=== PATIENT | female | born 1965 | race Caucasian/White ===

== ENCOUNTER 2017-07-02 13:39 | Inpatient (IN) | payer BC ==
--- NOTE | 2017-07-02 14:50 | C.PDOC ---
History Of Present Illness <James Mcnair - Last Filed: 07/02/17 15:59> <Becca Jon - Last Filed: 07/02/17 16:21> Patient is a 51 year old female with a past medical history of DM and HLD, who presents to the ED with complaints of chest pain radiating to the left arm. Patient states the chest pain started last Sunday while working at home, occurred intermittently throughout the day and subsided that afternoon. She took a Tylenol and sleeping medication, and went to bed early. She went to see her PMD, Dr. Diane, on Sunday, as well as spoke with Dr. Ramírez, who scheduled her for a nuclear stress test on 07/18/17. Patient states she developed chest pain again this morning that radiates to her left arm, which is why she came to the ED. She describes the pain as a tightness in her left chest that is also reproducible. She denies palpitations, shortness of breath, nausea , vomiting, fevers, dizziness, changes in vision, and dysuria. PMD: Dr. 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 Allergies: PCN (since childhood-unknown reaction) Medications: Rosuvastatin 10mg PO daily, Metformin 1000mg PO BID (Becca Jon) <James Mcnair - Last Filed: 07/02/17 15:59> History Per: Patient History/Exam Limitations: no limitations Onset/Duration Of Symptoms: Intermittent Episodes Current Symptoms Are (Timing): Still Present Severity: Moderate Quality: Tightness Associated Symptoms: Other (left arm pain) Exacerbating Factors: Other (reproducible chest pain with palpation) Alleviating Factors: Other (minimal relief with tyelnol) Additional History Per: Patient <Becca Jon - Last Filed: 07/02/17 16:21> Time Seen by Provider: 07/02/17 14:01 Chief Complaint (Nursing): Chest Pain Past Medical History - Medical History PMH: Diabetes Other Surgeries: THR 2006 Family History: States: [place] (Father) Other Family History: Mother- Bladder cancer - Social History Hx Tobacco Use: No Hx Alcohol Use: Yes (social) Hx Substance Use: No - Immunization History Hx Tetanus Toxoid Vaccination: No Hx Influenza Vaccination: No Hx Pneumococcal Vaccination: No <Becca Jon - Last Filed: 07/02/17 16:21> Vital Signs: Last Vital Signs Temp 97.4 F L 07/02/17 13:51 Pulse 76 07/02/17 15:58 Resp 16 07/02/17 15:58 BP 135/76 07/02/17 15:58 Pulse Ox 99 07/02/17 16:14 Review Of Systems Constitutional: Negative for: Fever, Chills, Sweats, Weakness Eyes: Negative for: Vision Change Cardiovascular: Positive for: Chest Pain. Negative for: Palpitations, Edema, Light Headedness Respiratory: Negative for: Cough, Shortness of Breath, Pleuritic Pain Gastrointestinal: Negative for: Nausea, Vomiting, Abdominal Pain, Diarrhea, Constipation Genitourinary: Negative for: Dysuria, Frequency, Hematuria Musculoskeletal: Positive for: Arm Pain (chest pain radiates to left arm). Negative for: Back Pain Neurological: Positive for: Headache (mild). Negative for: Weakness, Dizziness <Becca Jon - Last Filed: 07/02/17 16:21> Physical Exam - Physical Exam Appears: Well, Non-toxic, No Acute Distress Skin: Normal Color, Warm, Dry Head: Atraumatic, Normacephalic Eye(s): bilateral: Normal Inspection Chest: Symmetrical, Tenderness (with palpation of the left chest) Cardiovascular: Rhythm Regular, No Edema, No Murmur, No JVD Respiratory: Normal Breath Sounds, No Rales, No Rhonchi, No Stridor Gastrointestinal/Abdominal: Normal Exam, Bowel Sounds, Soft, No Tenderness, No Distention Extremity: Normal ROM, No Tenderness, No Pedal Edema, No Swelling Extremity: Bilateral: Atraumatic, No Pedal Edema Pulses: Left Dorsalis Pedis: Normal, Right Dorsalis Pedis: Normal Neurological/Psych: Oriented x3, Normal Speech <Becca Jon - Last Filed: 07/02/17 16:21> ED Course And Treatment - Laboratory Results Result Diagrams: 07/02/17 15:05 07/02/17 15:05 Lab Interpretation: Normal (trop neg.) ECG: Interpreted By Me ECG Rhythm: Sinus Rhythm, ST/T Changes (+ T^ inversions V1-V6) ECG Interpretation: Normal, Abnormal Rate From EC - Radiology CXR: Interpreted by Me CXR Interpretation: Yes: No Acute Disease Reevaluation Time: 16:00 Reassessment Condition: Improved - Physician Consult Information Outcome Of Conversation: 1600: d/w Dr. Alia rosales to admit. Dr. Styles to consult <James Mcnair - Last Filed: 07/02/17 15:59> - Laboratory Results Result Diagrams: 07/02/17 15:05 07/02/17 15:05 O2 Sat by Pulse Oximetry: 99 <Becca Jon - Last Filed: 07/02/17 16:21> Medical Decision Making <James Mcnair - Last Filed: 07/02/17 15:59> <Becca Jon - Last Filed: 07/02/17 16:21> Medical Decision Making: Dr. Diane contacted at 2:58pm; patient to be admitted under his service. Dr. Ramírez contacted. Ordered: - Labs: CBC, Coags, CMP, Troponins, EKG, BNP - Chest xray - Nitro paste - ASA 325mg PO - Lovenox 70mg SC (Becca Jon) Disposition Doctor Will See Patient In The: Hospital Counseled Patient/Family Regarding: Studies Performed, Diagnosis - Disposition Disposition Time: 16:01 <James Mcnair - Last Filed: 07/02/17 15:59> <Becca Jon - Last Filed: 07/02/17 16:21> - Disposition Disposition: HOSPITALIZED Condition: GOOD - Clinical Impression Clinical Impression: Precordial pain
[2017-07-02] MEDS ORDERED: Nitroglycerin 2% Ointment Foilpak UD TOP STA (14:53)
[2017-07-02] MEDS ORDERED: Aspirin 325 mg EC Tablets PO STA (14:53)
[2017-07-02] MEDS ORDERED: Enoxaparin 40 mg Syringe SC STA (14:56)
[2017-07-02 15:11] LABS: BASO % 0.5 % (0.0-2.0); EOS # 0.2 K/uL (0.0-0.7); EOS % 2.9 % (0.0-4.0); HEMOGLOBIN 13.3 g/dL (11.0-16.0); LYMPH # 2.1 K/uL (1.0-4.3); LYMPH % 37.1 % (20.0-40.0); MEAN CELL VOLUME 77.9 fL (81.0-99.0); MEAN CORPUSCULAR HEMOGLOBIN 26.6 pg (27.0-31.0); MEAN CORPUSCULAR HGB CONC 34.1 g/dL (33.0-37.0); MONO # 0.3 K/uL (0.0-0.8); MONO % 5.6 % (0.0-10.0); NEUT % 53.9 % (50.0-75.0); NRBC % 0.1 % (0.0-2.0); RBC 5.01 Mil/uL (3.80-5.20); RED CELL DISTRIBUTION WIDTH 13.4 % (11.5-14.5); WHITE BLOOD COUNT 5.6 K/uL (4.8-10.8)
[2017-07-02 15:19] LABS: INR 0.9; PROTHROMBIN TIME 10.3 SECONDS (9.7-12.2)
[2017-07-02] MEDS ORDERED: Aspirin 325 mg EC Tablets PO ONE (15:33)
[2017-07-02 15:34] LABS: ALB/GLOB RATIO 1.2 (1.0-2.1); ALBUMIN 4.5 g/dL (3.5-5.0); ALT/SGPT 22 U/L (9-52); AST/SGOT 33 U/L (14-36); BLOOD UREA NITROGEN 9 mg/dL (7-17); CALCIUM 9.5 mg/dl (8.6-10.4); GFR AFRICAN-AMERICAN > 60; GFR NON-AFRICAN AMERICAN > 60
[2017-07-02] MEDS ORDERED: Enoxaparin 80 mg Syringe ONE (15:34)
[2017-07-02] MEDS ORDERED: Nitroglycerin 2% Ointment Foilpak UD TOP ONE (15:34)
[2017-07-02 15:46] LABS: B-TYPE NATRIURETIC PEPTIDE 106 pg/mL (0-900)
--- NOTE | 2017-07-02 16:16 | RAD ---
HISTORY: SOB COMPARISON: Chest x-ray performed 11/03/15 TECHNIQUE: Chest, one view. FINDINGS: Examination limited by habitus. LUNGS: Right greater than left biapical pleural thickening with associated nodularity, scarring, and consolidation which suggest prior granulomatous disease. Bilateral hilar retracted superiorly. Suggest further evaluation with chest CT if indicated. Please note that chest x-ray has limited sensitivity for the detection of pulmonary masses. PLEURA: No significant pleural effusion identified. No definite pneumothorax . CARDIOVASCULAR: Heart size appears top normal. OSSEOUS STRUCTURES: Right 8th rib lucency laterally of unclear significance. VISUALIZED UPPER ABDOMEN: Unremarkable. OTHER FINDINGS: None. IMPRESSION: Re-identified prominent biapical pleural thickening, associated nodularity, scarring, consolidation, and retraction of bilateral winnie superiorly ; appearance suggests prior granulomatous disease. This may be further assessed with chest CT if indicated. Lucency noted involving the right lateral 8th rib of unclear significance. Considerations include lytic lesion or artifact. Recommend rib series for further evaluation. Findings discussed with Dr. Reid on 07/02/17 at 4:12 p.m..
--- NOTE | 2017-07-02 17:13 | CP.PCM.HP ---
History of Present Illness - History of Present Illness History of Present Illness: Chief complaint: Chest pain HPI: 51-year-old female with a history of diabetes, osteoarthritis, hip fracture, status post hip surgery came to the emergency room with a sudden onset of chest pain started this morning. Patient is having retrosternal chest pain, radiating to the left shoulder region on and off, for almost 2 weeks. Patient came to my office last week, and is seen by refractory bricklayer, supposed to be having a nuclear stress test. But the patient came to the emergency room today with worsening chest pain. The pain is not associated with any systemic symptoms including sweating, dizziness. Patient denies any nausea vomiting. Past medical history: Diabetes, hypercholesterolemia, osteoarthritis. Allergies: Penicillin Personal history: Nonsmoker nonalcoholic. No drug abuse Family history: Mother with heart disease. Father unknown history. Family history noncontributory otherwise Surgical history: Left hip surgery. Review of systems: Currently having no headache, visual symptom. No eye problems. Complaint of chest pain. No shortness of breath. Pain in the left hip is noted Vital signs reviewed No neck vein distention noted Chest good air entry bilaterally, no wheezing or rales noted CVS regular heart sound, no murmur noted Abdomen soft, nontender. 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 Underlying cardiac disease cannot be ruled out. EKG showing ischemic changes. We'll closely monitor, telemetry monitoring, cardiology evaluation, possible stress test if needed. Patient may need angiogram will follow the patient Present on Admission - Present on Admission Any Indicators Present on Admission: No History of DVT/PE: No History of Uncontrolled Diabetes: No Urinary Catheter: No Decubitus Ulcer Present: No Past Patient History - Past Social History Smoking Status: Never Smoked - ENDOCRINE/METABOLIC Hx Diabetes Mellitus Type 2: Yes - PSYCHIATRIC Hx Substance Use: No - SURGICAL HISTORY Hx Hysterectomy: Yes (left hip 2006) Meds Allergies/Adverse Reactions: Allergies Allergy/AdvReac Type Severity Reaction Status Date / Time Penicillins Allergy Verified 07/02/17 13:55 Results - Vital Signs Recent Vital Signs: Last Vital Signs Temp 97.4 F L 07/02/17 13:51 Pulse 76 07/02/17 15:58 Resp 16 07/02/17 15:58 BP 135/76 07/02/17 15:58 Pulse Ox 99 07/02/17 16:21 - Labs Result Diagrams: 07/02/17 15:05 07/02/17 15:05 Labs: Laboratory Results - last 24 hr 07/02/17 07/02/17 07/02/17 15:05 15:05 15:05 WBC 5.6 RBC 5.01 Hgb 13.3 Hct 39.0 MCV 77.9 L MCH 26.6 L MCHC 34.1 RDW 13.4 Plt Count 288 MPV 9.0 Neut % (Auto) 53.9 Lymph % (Auto) 37.1 [place] % (Auto) 5.6 Eos % (Auto) 2.9 Baso % (Auto) 0.5 Neut # (Auto) 3.0 Lymph # (Auto) 2.1 [place] # (Auto) 0.3 Eos # (Auto) 0.2 Baso # (Auto) 0.0 PT 10.3 INR 0.9 APTT 37 H Sodium 142 Potassium 4.2 Chloride 104 Carbon Dioxide 22 Anion Gap 21 H BUN 9 Creatinine 0.5 L Est GFR ( Amer) > 60 Est GFR (Non-Af Amer) > 60 Random Glucose 125 H Calcium 9.5 Total Bilirubin 0.5 AST 33 ALT 22 Alkaline Phosphatase 74 Troponin I < 0.0120 NT-Pro-B Natriuret Pep 106 Total Protein 8.3 Albumin 4.5 Globulin 3.8 Albumin/Globulin Ratio 1.2
[2017-07-02 20:39] LABS: CK-MB 0.29 ng/mL (0.0-3.38)
[2017-07-02] MEDS: Enoxaparin 30 mg Syringe SC SCH (21:21)
[2017-07-02] MEDS: (Novolin R) Insulin Human Regular 100 units/ml vial SC SCH (21:26)
--- NOTE | 2017-07-02 22:27 | CARD ---
APPROVED REPORT EKG Measurement Heart [id number] <Conclusion> Sinus rhythm with premature atrial complexes T wave abnormality, consider anterolateral ischemia Abnormal ECG
--- NOTE | 2017-07-02 23:02 | CP.PCM.CON ---
History of Present Illness - History of Present Illness History of Present Illness: 51 F admitted for left sided chest pain Patient scheduled for stress test in am Past Patient History - Past Medical History & Family History Past Medical History?: Yes - Past Social History Smoking Status: Never Smoked - CARDIAC Hx Cardiac Disorders: Yes Hx Angina: Yes Hx Hypercholesterolemia: Yes - PULMONARY Hx Respiratory Disorders: No - NEUROLOGICAL Hx Neurological Disorder: No - HEENT Hx HEENT Problems: No - RENAL Hx Chronic Kidney Disease: No - ENDOCRINE/METABOLIC Hx Diabetes Mellitus Type 2: Yes - HEMATOLOGICAL/ONCOLOGICAL Hx Blood Disorders: No - INTEGUMENTARY Hx Dermatological Problems: No - MUSCULOSKELETAL/RHEUMATOLOGICAL Hx Falls: No Hx Osteoarthritis: Yes - GASTROINTESTINAL Hx Gastrointestinal Disorders: No - GENITOURINARY/GYNECOLOGICAL Hx Genitourinary Disorders: No - PSYCHIATRIC Hx Psychophysiologic Disorder: No Hx Substance Use: No - SURGICAL HISTORY Hx Hysterectomy: Yes (left hip 2006) - ANESTHESIA Hx Anesthesia: Yes Hx Anesthesia Reactions: No Hx Malignant Hyperthermia: No Has any member of the family had a problem w/ anesthesia?: No Meds Allergies/Adverse Reactions: Allergies Allergy/AdvReac Type Severity Reaction Status Date / Time Penicillins Allergy Verified 07/02/17 13:55 - Medications Medications: Current Medications Aspirin (Aspirin) 325 mg PO DAILY IKE Enoxaparin Sodium (Lovenox) 30 mg SC Q12 I[facility] Last Admin: 07/02/17 21:21 Dose: 30 mg Insulin Human Regular (Novolin R) 0 unit SC ACHS IKE PRN Reason: Protocol Last Admin: 07/02/17 21:26 Dose: Not Given Rosuvastatin Calcium (Crestor) 5 mg PO HS IKE Last Admin: 07/02/17 21:20 Dose: 5 mg Zolpidem Tartrate (Ambien) 5 mg PO HS PRN PRN Reason: Insomnia Last Admin: 07/02/17 21:20 Dose: 5 mg Results - Vital Signs Recent Vital Signs: Last Vital Signs Temp 97.4 F L 07/02/17 13:51 Pulse 79 07/02/17 18:30 Resp 18 07/02/17 18:05 BP 135/76 07/02/17 15:58 Pulse Ox 100 07/02/17 18:05 - Labs Result Diagrams: 07/02/17 15:05 07/02/17 15:05 Labs: Laboratory Results - last 24 hr 07/02/17 07/02/1718 15:05 15:05 15:05 WBC 5.6 RBC 5.01 Hgb 13.3 Hct 39.0 MCV 77.9 L MCH 26.6 L MCHC 34.1 RDW 13.4 Plt Count 288 MPV 9.0 Neut % (Auto) 53.9 Lymph % (Auto) 37.1 [place] % (Auto) 5.6 Eos % (Auto) 2.9 Baso % (Auto) 0.5 Neut # (Auto) 3.0 Lymph # (Auto) 2.1 [place] # (Auto) 0.3 Eos # (Auto) 0.2 Baso # (Auto) 0.0 PT 10.3 INR 0.9 APTT 37 H Sodium 142 Potassium 4.2 Chloride 104 Carbon Dioxide 22 Anion Gap 21 H BUN 9 Creatinine 0.5 L Est GFR ( Amer) > 60 Est GFR (Non-Af Amer) > 60 POC Glucose (mg/dL) Random Glucose 125 H Calcium 9.5 Total Bilirubin 0.5 AST 33 ALT 22 Alkaline Phosphatase 74 Total Creatine Kinase CK-MB (Mass) Troponin I < 0.0120 NT-Pro-B Natriuret Pep 106 Total Protein 8.3 Albumin 4.5 Globulin 3.8 Albumin/Globulin Ratio 1.2 07/02/17 07/02/17 20:08 21:11 WBC RBC Hgb Hct MCV MCH MCHC RDW Plt Count MPV Neut % (Auto) Lymph % (Auto) [place] % (Auto) Eos % (Auto) Baso % (Auto) Neut # (Auto) Lymph # (Auto) [place] # (Auto) Eos # (Auto) Baso # (Auto) PT INR APTT Sodium Potassium Chloride Carbon Dioxide Anion Gap BUN Creatinine Est GFR ( Amer) Est GFR (Non-Af Amer) POC Glucose (mg/dL) 109 Random Glucose Calcium Total Bilirubin AST ALT Alkaline Phosphatase Total Creatine Kinase 36 CK-MB (Mass) 0.29 Troponin I < 0.0120 NT-Pro-B Natriuret Pep Total Protein Albumin Globulin Albumin/Globulin Ratio
[2017-07-03 07:37] LABS: HDL CHOLESTEROL 43 mg/dL (30-70)
[2017-07-03] MEDS ORDERED: Aminophylline 25 mg/ml Inj ONE (07:52)
[2017-07-03 07:54] LABS: LDL CHOLESTEROL 55 mg/dL (0-129)
[2017-07-03] MEDS: (Novolin R) Insulin Human Regular 100 units/ml vial SC SCH ×4 (08:22→21:00)
[2017-07-03] MEDS: Enoxaparin 30 mg Syringe SC SCH ×2 (12:02→21:00)
--- NOTE | 2017-07-03 14:52 | CT ---
PROCEDURE: CT Chest without contrast HISTORY: rib fracture COMPARISON: Plain radiographs from 07/02/2017 TECHNIQUE: Contiguous axial images were obtained through the chest without intravenous contrast enhancement. Sagittal and coronal reconstructions were performed. Radiation dose (DLP): 332.30 mGy-cm. This CT exam was performed using one or more of the following dose reduction techniques: Automated exposure control, adjustment of the mA and/or kV according to patient size, and/or use of iterative reconstruction technique. FINDINGS: LUNGS: There are extensive fibrotic changes in both upper lobes, worse on the right and cavitary changes in the posterior right upper lobe. There is also biapical pleural thickening. There is superior retraction of both winnie. There is scattered centrilobular emphysema in the lungs. MEDIASTINUM: The heart is normal in size. No pericardial effusion. No pathologic mediastinal adenopathy. PLEURA: No pleural fluid. No pneumothorax. BONES: There is an acute mildly displaced fracture in the right posterolateral 8th rib and there is an old fracture deformity in the right posterolateral 9th rib. UPPER ABDOMEN: Grossly unremarkable. OTHER FINDINGS: None. IMPRESSION: 1. Acute mildly displaced fracture in the right posterolateral 8th rib. 2. Old fracture deformity in the right posterolateral 9th rib. 3. Fibrotic changes in the upper lobes, worse on the right with retraction of winnie and scattered centrilobular emphysema in the lungs.
[2017-07-03 16:31] VITALS: RESP 20
--- NOTE | 2017-07-03 18:28 | CARD ---
APPROVED REPORT EXAM: Two-dimensional and M-mode echocardiogram with Doppler and color Doppler. Other Information Quality : GoodRhythm : INDICATION ANGINA RISK FACTORS Hyperlipidemia Diabetes M-Mode DIMENSIONS RVDd1.82 (2.1-3.2cm)Left Atrium (MM)3.23 (2.5-4.0cm) IVSd1.00 (0.7-1.1cm)Aortic Root2.55 (2.2-3.7cm) LVDd3.92 (4.0-5.6cm)Aortic Cusp Exc.1.73 (1.5-2.0cm) PWd0.82 (0.7-1.1cm)FS (%) 43 % LVDs2.25 (2.0-3.8cm)LVEF (%)74 (>50%) Mitral Valve MV E Jvoqvflu67.6cm/sMV A Eslxgukp64.4cm/sE/A ratio1.0 TDI E/Lateral E'0.0E/Medial E'0.0 Tricuspid Valve TR Peak Cgxveldi989ch/sTR Peak Gr.[id number] LEFT VENTRICLE The left ventricle is normal size. There is normal left ventricular wall thickness. The left ventricular function is normal. The left ventricular ejection fraction is within the normal range. There is normal LV segmental wall motion. Transmitral Doppler flow pattern is Grade I-abnormal relaxation pattern. RIGHT VENTRICLE The right ventricle is normal size. There is normal right ventricular wall thickness. The right ventricular systolic function is normal. ATRIA The left atrium size is normal. The right atrium size is normal. AORTIC VALVE The aortic valve is not well visualized. No aortic regurgitation is present. There is no aortic valvular stenosis. MITRAL VALVE The mitral valve is not well visualized. There is no mitral valve stenosis. There is no mitral valve regurgitation noted. GREAT VESSELS The aortic root is normal in size. The IVC was not visualized. PERICARDIAL EFFUSION There is no pericardial effusion. <Conclusion> The left ventricle is normal size. There is normal left ventricular wall thickness. The left ventricular function is normal. The left ventricular ejection fraction is within the normal range. There is normal LV segmental wall motion. Transmitral Doppler flow pattern is Grade I-abnormal relaxation pattern.
[2017-07-03 20:13] LABS: CK-MB < 0.22 ng/mL (0.0-3.38)
--- NOTE | 2017-07-03 23:04 | CP.PCM.PN ---
Subjective - Date & Time of Evaluation Date of Evaluation: 07/03/17 Time of Evaluation: 23:03 - Subjective Subjective: Patient today feeling better. She underwent a multiple testing today. Stress test were negative, but there was some EKG changes noted. 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 Patient will be getting that a coronary angiogram tomorrow. CT chest showing evidence of right-sided eighth and ninth rib fracture. Patient had a fall in February 2017. There is an acute fracture, but unclear etiology. I spoke to the patient regarding this. Patient has a significant osteoporosis, possible. Diagnoses: Acute chest pain, nonspecific, cardiology pending The rib fracture. Hypertension. Diabetes. Osteoporosis and osteoarthritis Objective - Vital Signs/Intake and Output Vital Signs (last 24 hours): Temp Pulse Resp BP Pulse Ox 98.3 F 70 20 128/70 100 07/03/17 15:00 07/03/17 16:14 07/03/17 15:00 07/03/17 15:00 07/03/17 15:00 - Medications Medications: Current Medications Acetaminophen (Tylenol 325mg Tab) 650 mg PO Q8 PRN PRN Reason: pain Last Admin: 07/03/17 20:58 Dose: 650 mg Aspirin (Aspirin) 325 mg PO DAILY [facility] Last Admin: 07/03/17 12:01 Dose: 325 mg Enoxaparin Sodium (Lovenox) 30 mg SC Q12 [facility] Last Admin: 07/03/17 21:00 Dose: 30 mg Insulin Human Regular (Novolin R) 0 unit SC ACHS IKE PRN Reason: Protocol Last Admin: 07/03/17 21:00 Dose: Not Given Rosuvastatin Calcium (Crestor) 5 mg PO HS IKE Last Admin: 07/03/17 21:00 Dose: 5 mg Zolpidem Tartrate (Ambien) 5 mg PO HS PRN PRN Reason: Insomnia Last Admin: 07/02/17 21:20 Dose: 5 mg - Labs Labs: 07/02/17 15:05 07/02/17 15:05 PT 10.3 SECONDS (9.7-12.2) 07/02/17 15:05 INR 0.9 07/02/17 15:05 APTT 37 SECONDS (21-34) H 07/02/17 15:05
[2017-07-04] MEDS: (Novolin R) Insulin Human Regular 100 units/ml vial SC SCH ×4 (07:45→21:53)
[2017-07-04] MEDS: Enoxaparin 30 mg Syringe SC SCH (10:00)
[2017-07-04] MEDS ORDERED: Verapamil 2 ML ONE (10:09)
[2017-07-04] MEDS ORDERED: Iohexol 350mg/ml 100 ML ONE (10:09)
[2017-07-04] MEDS ORDERED: Midazolam 2 MG/2 ML VIAL ONE (10:10)
[2017-07-04] MEDS ORDERED: Nitroglycerin 50mg in D5W 50 MG/250 ML BOTTLE IV ONE (10:10)
--- NOTE | 2017-07-04 11:12 | CP.PCM.PN ---
Subjective - Date & Time of Evaluation Date of Evaluation: 07/04/17 Time of Evaluation: 11:10 - Subjective Subjective: Patient s/p cath 1. Normal Coronaries and Normal EF Bed rest till 5.30pm and ambulate after 5.30pm Resume diet D/C Aspirin DM2 and Cholesterol mgt D/C home in am Objective - Vital Signs/Intake and Output Vital Signs (last 24 hours): Temp Pulse Resp BP Pulse Ox 98 F 62 20 125/78 100 07/04/17 07:00 07/04/17 07:50 07/04/17 07:00 07/04/17 07:00 07/04/17 07:00 - Medications Medications: Current Medications Acetaminophen (Tylenol 325mg Tab) 650 mg PO Q8 PRN PRN Reason: pain Last Admin: 07/03/17 20:58 Dose: 650 mg Insulin Human Regular (Novolin R) 0 unit SC ACHS IKE PRN Reason: Protocol Last Admin: 07/04/17 07:45 Dose: Not Given Rosuvastatin Calcium (Crestor) 5 mg PO HS IKE Last Admin: 07/03/17 21:00 Dose: 5 mg Zolpidem Tartrate (Ambien) 5 mg PO HS PRN PRN Reason: Insomnia Last Admin: 07/02/17 21:20 Dose: 5 mg - Labs Labs: 07/02/17 15:05 07/02/17 15:05 PT 10.3 SECONDS (9.7-12.2) 07/02/17 15:05 INR 0.9 07/02/17 15:05 APTT 37 SECONDS (21-34) H 07/02/17 15:05
[2017-07-04] MEDS: Sodium Chloride 0.9% 500 ML IV SCH ×2 (14:00→18:23)
--- NOTE | 2017-07-04 22:26 | CARDCATH ---
PROCEDURE DATE: 07/04/2017 PROCEDURES: 1. Left heart catheterization. 2. Coronary angiogram. 3. Radiological supervision and radiological interpretation of the cardiac catheterization. CLINICAL INDICATIONS: 1. Chest pain. 2. Abnormal stress test. 3. Hyperlipidemia. 4. Diabetes. REFERRING PHYSICIAN: Katie Diane M.D. PERFORMING PHYSICIAN: Simon Ramírez M.D. PROCEDURE IN DETAIL: After informed consent, the patient was prepped and draped in the usual sterile fashion. 2% Lidocaine was given in the right groin for local anesthesia. Using micropuncture technique, 6-Nigerian sheath was introduced in the right common femoral artery. A 6-Nigerian JL4 diagnostic catheter engaged into left main coronary artery. Contrast injected and left coronary angiogram was performed. 6-Nigerian JR4 diagnostic catheter crossed into the left ventricle. LV end-diastolic pressure measured. Contrast injected and LV angiogram was performed. The catheter was pulled back across the aortic valve. Gradient across the aortic valve was measured. Then the catheter was engaged into right coronary artery. The contrast injected and right coronary angiogram was performed. The patient tolerated the procedure well. FINDINGS: 1. Left main coronary artery is patent. 2. LAD and diagonal branches are patent. 3. The left circumflex and obtuse marginal branches are patent. 4. Right coronary artery is dominant and patent. 5. LV ejection fraction is approximately 80%, no wall motion abnormalities noted. EDP is 15. No gradient across the aortic valve. IMPRESSION: 1. Normal coronaries. 2. Normal left ventricular systolic function. 3. Recommend medical management. Simon Ramírez MD
--- NOTE | 2017-07-05 00:36 | CP.PCM.PN ---
Subjective - Date & Time of Evaluation Date of Evaluation: 07/04/17 Time of Evaluation: 17:00 - Subjective Subjective: Clinically stable, no chest pain, had angiogram today. Vital signs reviewed No neck vein distention noted Chest good air entry bilaterally, no wheezing or rales noted CVS regular heart sound, no murmur noted Abdomen soft, nontender. 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 Patient will be transferred and discharged home tomorrow. Objective - Vital Signs/Intake and Output Vital Signs (last 24 hours): Temp Pulse Resp BP Pulse Ox 98 F 68 20 127/78 98 07/04/17 15:10 07/04/17 16:15 07/04/17 15:10 07/04/17 15:10 07/04/17 15:10 Intake and Output: 07/04/17 07/05/17 18:59 06:59 Intake Total 500 Balance 500 - Medications Medications: Current Medications Acetaminophen (Tylenol 325mg Tab) 650 mg PO Q8 PRN PRN Reason: pain Last Admin: 07/04/17 17:02 Dose: 650 mg Sodium Chloride (Sodium Chloride 0.9%) 500 mls @ 70 mls/hr IV .Q7H9M IKE Stop: 07/05/17 07:00 Last Admin: 07/04/17 18:23 Dose: Not Given Insulin Human Regular (Novolin R) 0 unit SC ACHS IKE PRN Reason: Protocol Last Admin: 07/04/17 21:53 Dose: Not Given Rosuvastatin Calcium (Crestor) 5 mg PO HS IKE Last Admin: 07/04/17 21:59 Dose: 5 mg Zolpidem Tartrate (Ambien) 5 mg PO HS PRN PRN Reason: Insomnia Last Admin: 07/02/17 21:20 Dose: 5 mg - Labs Labs: 07/02/17 15:05 07/02/17 15:05 PT 10.3 SECONDS (9.7-12.2) 07/02/17 15:05 INR 0.9 07/02/17 15:05 APTT 37 SECONDS (21-34) H 07/02/17 15:05
[2017-07-05] MEDS: Sodium Chloride 0.9% 500 ML IV SCH (00:42)
[2017-07-05 04:54] VITALS: O2SAT 97
[2017-07-05] MEDS: (Novolin R) Insulin Human Regular 100 units/ml vial SC SCH (08:00)
[2017-07-05 09:48] VITALS: BP 135/82; PULSE 56; TEMP 98.3
--- NOTE | 2017-07-05 12:09 | CP.PCM.PN ---
Subjective - Date & Time of Evaluation Date of Evaluation: 07/05/17 Time of Evaluation: 11:50 - Subjective Subjective: patient seen today , denies any chest pain, dizziness, palpitations s/p CT angio Objective - Vital Signs/Intake and Output Vital Signs (last 24 hours): Temp Pulse Resp BP Pulse Ox 98.3 F 56 L 20 135/82 97 07/05/17 09:47 07/05/17 09:47 07/05/17 09:47 07/05/17 09:47 07/05/17 09:47 Intake and Output: 07/05/17 07/05/17 06:59 18:59 Intake Total 1160 Balance 1160 - Medications Medications: Current Medications Acetaminophen (Tylenol 325mg Tab) 650 mg PO Q8 PRN PRN Reason: pain Last Admin: 07/04/17 17:02 Dose: 650 mg Insulin Human Regular (Novolin R) 0 unit SC ACHS IKE PRN Reason: Protocol Last Admin: 07/05/17 08:00 Dose: Not Given Rosuvastatin Calcium (Crestor) 5 mg PO HS IKE Last Admin: 07/04/17 21:59 Dose: 5 mg Zolpidem Tartrate (Ambien) 5 mg PO HS PRN PRN Reason: Insomnia Last Admin: 07/02/17 21:20 Dose: 5 mg - Labs Labs: 07/02/17 15:05 07/02/17 15:05 PT 10.3 SECONDS (9.7-12.2) 07/02/17 15:05 INR 0.9 07/02/17 15:05 APTT 37 SECONDS (21-34) H 07/02/17 15:05
--- NOTE | 2017-07-05 17:53 | CARD ---
APPROVED REPORT EKG Measurement Heart [id number] <Conclusion> Normal sinus rhythm T wave abnormality, consider anterolateral ischemia Abnormal ECG
== END 2017-07-05 12:51 | disposition home or self-care (01) | DRG 287 ==
LOC: C.ER 13:39 → C.9E 14:57 → C.6T 17:30
PROVIDERS: ADMIT Internal Medicine; ATTEND Internal Medicine
PROC: 4A023N7 Measurement of Cardiac Sampling and Pressure, Left Heart, Percutaneous Approach (ICD-10-PCS; principal; 2017-07-04)
PROC: B2151ZZ Fluoroscopy of Left Heart using Low Osmolar Contrast (ICD-10-PCS; 2017-07-04)
PROC: B2111ZZ Fluoroscopy of Multiple Coronary Arteries using Low Osmolar Contrast (ICD-10-PCS; 2017-07-04)
DX: R07.89 Other chest pain (principal); I10 Essential (primary) hypertension; E11.9 Type 2 diabetes mellitus without complications; M16.10 Unilateral primary osteoarthritis, unspecified hip; M81.0 Age-related osteoporosis without current pathological fracture; E78.5 Hyperlipidemia, unspecified; E78.00 Pure hypercholesterolemia, unspecified; S22.41XS Multiple fractures of ribs, right side, sequela; W19.XXXS Unspecified fall, sequela; Z79.82 Long term (current) use of aspirin; Z90.710 Acquired absence of both cervix and uterus; Z79.4 Long term (current) use of insulin; Z91.81 History of falling